=== PATIENT | female | born 1940 | race Caucasian/White ===

== ENCOUNTER 2022-08-29 03:26 | Emergency (ER) | payer MEDICARE ==
[~2022-08-29] VITALS: Ht 162.6 cm; Wt 77.1 kg
[~2022-08-29 03:26] MED LIST: ACET325C6 PO; ASPI-1197 PO; CALC500T13 PO; CLON0.1T PO; DOCU100C33 PO; DULO30CA52 PO; FERR-72 PO; FOLI1 PO; LISI30TA4 PO; MAGN400O17 PO; MELA1TAB17 PO; METO-391 PO; MVIT PO; OMEP20CA12 PO; POLY17PO4 PO; PROM25TA7 PO; TRAZ-185 PO
[2022-08-29 03:53] LABS: HEMATOCRIT 42.7 % (36-48); MEAN CORPUSCULAR HEMOGLOBIN 31.8 pg (27.0-33.0); MEAN CORPUSCULAR HGB CONC 33.3 g/dL (32.0-36.0); MEAN CORPUSCULAR VOLUME 95.7 fL (79-99); PLATELET COUNT (AUTO) 157 K/uL (130-400); RED BLOOD CELL COUNT(AUTO) 4.46 MIL/uL (4.00-5.50); RED CELL DISTRIBUTION WIDTH 13.6 % (11.0-15.5); WHITE BLOOD COUNT (AUTO) 12.1 K/uL (4.8-10.8)
[2022-08-29] MEDS ORDERED: 0.9%NACL 1000ML 1,000 ML IV SCH (04:00)
[2022-08-29 04:03] LABS: BASOPHILS % (AUTO) 0.3 % (0.0-5.0); EOSINOPHILS % (AUTO) 0.5 % (0.0-8.0); LYMPHOCYTES % (AUTO) 4.5 % (21.0-51.0); MONOCYTES % (AUTO) 5.8 % (3.0-13.0); NEUTROPHILS % (AUTO) 88.3 % (40.0-77.0)
[2022-08-29 04:06] LABS: INR 1.04 (0.85-1.15); PROTHROMBIN TIME 11.3 SEC (9.6-11.6)
[2022-08-29 04:07] LABS: PARTIAL THROMBOPLASTIN TIME 29.1 SEC (26.3-35.5)
[2022-08-29 04:19] LABS: ALBUMIN 3.3 g/dL (3.5-5.0)
[2022-08-29 04:33] LABS: POTASSIUM 4.4 mmol/L (3.5-5.1)
[2022-08-29 04:36] LABS: CREATININE 0.7 mg/dL (0.5-1.5)
[2022-08-29 05:49] LABS: HEMATOCRIT 39.4 % (36-48); MEAN CORPUSCULAR HEMOGLOBIN 31.8 pg (27.0-33.0); MEAN CORPUSCULAR VOLUME 96.3 fL (79-99); RED BLOOD CELL COUNT(AUTO) 4.09 MIL/uL (4.00-5.50); RED CELL DISTRIBUTION WIDTH 13.6 % (11.0-15.5); WHITE BLOOD COUNT (AUTO) 10.7 K/uL (4.8-10.8)
[2022-08-29 09:44] VITALS: BP 146/70
== END 2022-08-29 09:55 ==
LOC: EDH 03:26
DX: U07.1 COVID-19 (principal); R04.0 Epistaxis; R11.10 Vomiting, unspecified; I10 Essential (primary) hypertension; E78.00 Pure hypercholesterolemia, unspecified; I25.10 Atherosclerotic heart disease of native coronary artery without angina pectoris; K21.9 Gastro-esophageal reflux disease without esophagitis; Z86.2 Personal history of diseases of the blood and blood-forming organs and certain disorders involving the immune mechanism; Z79.82 Long term (current) use of aspirin; Z79.899 Other long term (current) drug therapy
CPT/HCPCS: 99285; 87635; 80053; 85025; 85610; 85730; 86850; 86900; 86901; 87040 ×2; 87804 ×2; 83605; 36415; 93005; 85027; C9803; J7030